=== PATIENT | female | born 1995 | race Caucasian/White ===

== ENCOUNTER 2019-10-20 00:17 | Inpatient (IN) | payer SELFPAY ==
[2019-10-20] VITALS (43 sets, daily range): BP systolic 104–139; BP diastolic 56–86
[~2019-10-20] VITALS: Ht 162 cm; Wt 66.7 kg
[2019-10-20] MEDS ORDERED: D5 LR IV SOLUTION 1,000 ML IV SCH (00:31)
[2019-10-20] MEDS ORDERED: MINERAL OIL CONCENTRATE 99.9% 15 ML UDC TOP PRN (00:45)
[2019-10-20 00:53] LABS: BASOPHILS % (AUTO) 0 % (0-10); EOSINOPHILS # (AUTO) 0.1 10^3/uL (0.0-0.3); EOSINOPHILS % (AUTO) 1 % (0-10); HEMATOCRIT 35 % (35-52); LYMPHOCYTES # (AUTO) 2.5 X 10^3 (1.0-4.0); LYMPHOCYTES % (AUTO) 21 % (12-44); MEAN CORPUSCULAR HEMOGLOBIN 29 PG (25-34); MEAN CORPUSCULAR HGB CONC 34 G/DL (32-36); MEAN CORPUSCULAR VOLUME 84 FL (80-99); MEAN PLATELET VOLUME 9.1 FL (7.4-10.4); MONOCYTES # (AUTO) 1.4 X 10^3 (0.0-1.0); MONOCYTES % (AUTO) 12 % (0-12); NEUTROPHILS # (AUTO) 7.6 X 10^3 (1.8-7.8); NEUTROPHILS % (AUTO) 65 % (42-75); PLATELET COUNT 340 10^3/uL (130-400); RED CELL DISTRIBUTION WIDTH 12.5 % (10.0-14.5); WHITE BLOOD COUNT 11.7 10^3/uL (4.3-11.0)
[2019-10-20] MEDS ORDERED: OXYTOCIN/NORMAL SALINE 500 ML IV ONE ×2 (00:53→07:47)
[2019-10-20] MEDS ORDERED: LACTATED RINGERS 1,000 ML IV SCH (01:00)
[2019-10-20] MEDS ORDERED: SUFENTA 0.6MCG/ML BUPIVA 0.125 100 ML ONE (01:29)
[2019-10-20] MEDS ORDERED: fentaNYL INJECTION 100 MCG/2 ML AMP ONE (01:39)
[2019-10-20] MEDS ORDERED: BUPIVACAINE 0.25% 30 ML (SENSORCAINE) VIAL ONE (01:39)
[2019-10-20] MEDS ORDERED: NALOXONE 0.4 MG/ML 1 ML (NARCAN) VIAL IV PRN (02:15)
[2019-10-20] MEDS ORDERED: EPIDURAL (SUFENTA 0.6MCG/ML BUPIVA 0.125%) 100 ML BAG EPI SCH (02:15)
[2019-10-20] MEDS ORDERED: LACTATED RINGERS 1,000 ML IV ONE (02:15)
[2019-10-20] MEDS ORDERED: CATHETER FLUSH 10 ML SYR IV PRN (02:15)
[2019-10-20] MEDS ORDERED: CATHETER FLUSH 10 ML SYR IV SCH ×2 (06:00→14:00)
[2019-10-20] MEDS: OXYTOCIN/NORMAL SALINE 500 ML IV SCH ×2 (07:23→07:55)
[2019-10-20] MEDS ORDERED: LIDOCAINE/EPI 2% 1:200,00 (XYLOCAINE) 10 ML VIAL ONE (07:43)
[2019-10-20] MEDS ORDERED: TETANUS,DIPTH,PERTUSS P/F (BOOSTRIX) 0.5 ML VIAL IM ONE (07:45)
[2019-10-20] MEDS ORDERED: BENZOCAINE/MENTHOL (DERMOPLAST) 60 ML CAN TP PRN (07:45)
[2019-10-20] MEDS ORDERED: WITCH HAZEL(TUCKS) 40 EA JAR TOP PRN (07:45)
[2019-10-20] MEDS ORDERED: MEASLES,MUMPS,RUBELLA 1 EA INJ SQ ONE (07:45)
--- NOTE | 2019-10-20 08:40 | Consultation ---
History of Present Illness History of Present Illness Patient Consulted On(niranjan/time) 10/20/19 08:30 Date Seen by Provider: Oct 20, 2019 Time Seen by Provider: 07:45 Reason for Visit: Active labor and delivery of term with 4th degree laceration History of Present Illness This 24 yo presented in active labor at term, and was managed and delivered by Dr. Mascorro. I was contacted this AM for advise and repair of 4th degree laceration involving the rectal mucosa. Allergies and Home Medications Allergies Coded Allergies: No Known Drug Allergies (Unverified , 10/20/19) Home Medications No Active Prescriptions or Reported Meds Patient Home Medication List Home Medication List Reviewed: Yes Past Hkrdepf-Vkawrz-Dpudey Hx Patient Social History Alcohol Use: Denies Use Recreational Drug Use: No Smoking Status: Never a Smoker Recent Foreign Travel: No Contact w/Someone Who Travel: No Recent Infectious Disease Expo: No Recent Hopitalizations: No Immunizations Up To Date PED Vaccines UTD: No Seasonal Allergies Seasonal Allergies: No Past Medical History Surgeries: No Respiratory: No Cardiac: No Neurological: No Expected Date of Delivery: Oct 17, 2019 Genitourinary: No Gastrointestinal: No Endocrine: No HEENT: No Cancer: No Psychosocial: No Integumentary: No Blood Disorders: No Adverse Reaction/Blood Tranf: No Family Medical History Patient reports no known family medical history. Review of Systems-General Constitutional: see HPI EENTM: see HPI Respiratory: see HPI Cardiovascular: see HPI Gastrointestinal: see HPI Genitourinary: see HPI Musculoskeletal: see HPI Skin: see HPI Psychiatric/Neurological: See HPI All Other Systems Reviewed Negative Unless Noted: Yes Physical Exam-General Problems Physical Exam Vital Signs Vital Signs - First Documented 10/20/19 10/20/19 10/20/19 00:45 00:50 06:42 Temp 36.2 Pulse 62 Resp 18 B/P (MAP) 139/86 (103) Pulse Ox 98 O2 Delivery Room Air O2 Flow Rate 10.00 Capillary Refill : Less Than 3 Seconds General Appearance: WD/WN, no apparent distress HEENT: PERRL/EOMI Comments When I presented for evaluation, patient pain under control with epidural. Evaluation of the vulvar initially is noted to have multiple contusions and edema consistent with first time vaginal delivery and trauma. There is a perineal laceration noted, extending from the vaginal mucosa at 6 oclock through the perineum, submucosa and anal sphincter, involving approx 5-8 mm of rectal mucosa. After delineating the planes of the laceration, I begin the repair by reapproximating the rectal mucosa using 3-0 chromic in a running fashion, I then re-enforce this repair by oversewing and imbricating the repair with 3-0 rapide vicryl suture. The anal sphincter is the identified and reapproximated using 2- 0 vicryl suture in interrupted fashion. The remainder of the repair is done in usual fashion, involved the vaginal mucosa and perineum reapproximation using 3- 0 rapid vicryl suture, after I pull together and reapproximate the perineal body by placing a crown stitch using 2-0 vicryl suture in the bulbocavernosis muscles. After which the repair was evaluated with excellent perineal support, and rectal exam was performed and sphincter tone could be appreciated. Assessment/Plan Assessment/Plan Admission Diagnosis/Plan Diagnosis: Post repair of 4th degree laceration P: Stool softeners scheduled for the next 2 weeks. Will follow and re-evaluate as needed. Clinical Quality Measures DVT/VTE Risk/Contraindication: Risk Factor Score Per Nursin RFS Level Per Nursing on Admit: 1=Low/No VTE PPX FRAN BUSTOS DO Oct 20, 2019 08:40
[2019-10-20] MEDS: IBUPROFEN 600 MG (MOTRIN) TAB PO SCH ×3 (09:33→20:27)
[2019-10-20] MEDS: MILK OF MAGNESIA 400 MG/5 ML 30 ML UDC PO PRN (10:50)
[2019-10-20] MEDS: DOCUSATE SODIUM 100 MG (COLACE) CAP PO SCH ×2 (10:50→20:27)
[2019-10-20] MEDS: ACETAMINOPHEN 500 MG TAB (TYLENOL) PO SCH ×2 (12:16→18:04)
--- NOTE | 2019-10-20 12:20 | History & Physical-OB ---
OB - Chief Complaint & HPI Date/Time Date of Admission: Date of Admission: Oct 20, 2019 at 00:34 Date seen by a Provider: Oct 20, 2019 Time Seen by a Provider: 06:00 Chief Complaint/History OB-Reason for Admission/Chief: Onset of Labor Hx : 1 Hx Para: 0 Expected Date of Delivery: Oct 17, 2019 Gestational Age in Weeks: 40 Gestational Age in Days: 3 Admission Nurse Assessment Rev: Yes Allergies and Home Medications Allergies Coded Allergies: No Known Drug Allergies (Unverified , 10/20/19) Home Medications No Active Prescriptions or Reported Meds Patient Home Medication List Home Medication List Reviewed: Yes OB - History Hx of Present Ultrasounds: Normal mid trimester US Obstetrical Complications: None Medical Complications: None Delivery History Adverse Rxn to Tranfusion: No Patient Past Medical History previously healthy Social History/Family History Recent Infectious Disease Expo: No Alcohol Use: Denies Use Recreational Drug Use: No Immunizations Hepatitis A: No Hepatitis B: No OB - Admission Exam Physical Exam Vitals: Vital Signs 10/20/19 10/20/19 10/20/19 06:00 06:15 07:15 Temp 37.0 Pulse 65 Resp 18 B/P (MAP) 114/56 (75) Pulse Ox 97 O2 Delivery OxyMask O2 Flow Rate 10.00 HEENT: NCAT Heart: Rhythm Normal Lungs: Clear Abdomen: Gravid Extremities: Normal Reflexes: Normal Cervical Dilatation: 10cm Effacement: 100% Station: 0 Membranes: Ruptured Amniotic Fluid: Clear Heart Rate: 120's Accelerations: Accelerations Present Decelerations: No Decelerations Short Term Variability: Present Mcc Variability: Average (6-25) Contractions on Admission: < 5 Minutes Apart Labs Laboratory Tests Test 10/20/19 00:40 Range/Units White Blood Count 11.7 H 4.3-11.0 10^3/uL Red Blood Count 4.16 L 4.35-5.85 10^6/uL Hemoglobin 12.0 11.5-16.0 G/DL Hematocrit 35 35-52 % Mean Corpuscular Volume 84 80-99 FL Mean Corpuscular Hemoglobin 29 25-34 PG Mean Corpuscular Hemoglobin Concent 34 32-36 G/DL Red Cell Distribution Width 12.5 10.0-14.5 % Platelet Count 340 130-400 10^3/uL Mean Platelet Volume 9.1 7.4-10.4 FL Neutrophils (%) (Auto) 65 42-75 % Lymphocytes (%) (Auto) 21 12-44 % Monocytes (%) (Auto) 12 0-12 % Eosinophils (%) (Auto) 1 0-10 % Basophils (%) (Auto) 0 0-10 % Neutrophils # (Auto) 7.6 1.8-7.8 X 10^3 Lymphocytes # (Auto) 2.5 1.0-4.0 X 10^3 Monocytes # (Auto) 1.4 H 0.0-1.0 X 10^3 Eosinophils # (Auto) 0.1 0.0-0.3 10^3/uL Basophils # (Auto) 0.0 0.0-0.1 10^3/uL OB - Assessment/Plan/Diagnosis Assessment Assessment: active labor Admission Dx Normal labor at 40 weeks and 3 days Admission Status: Inpatient Order (span 2 midnights) Reason for Inpatient Admission: Normal labor at 40 weeks 3 days. Plan Other Plan Will start pushing. OA. QUINTON FREIRE MD Oct 20, 2019 12:20
--- NOTE | 2019-10-20 12:27 | OB Labor & Delivery Record ---
Vag Delivery Note Vag Delivery Note Date of Delivery: 10/20/19 Preoperative Diagnosis: Lissett Rod is a (24 /Para 1 / 0, Gestational Age (wks)40with [3 days] Postoperative Diagnosis: Same Surgeon: QUINTON FREIRE Hardwood Floor Layer: [none] Anesthesia: [epidural] Delivery Type: [] Findings: [] Viable [male] infant, apgars [8/9], weight [7 pounds 1 ounce] Lacerations: Intact placenta with 3 vessel cord. No nuchal cord, body cord or shoulder dystocia Estimated Blood Loss: [300] ml Complications: None Condition: Stable Description of Procedure: The patient is a 24 year old female who presented [in labor]. She was admitted and informed consent was obtained. Her labor course was remarkable for [nothing] She progressed to complete dilatation and began to push. She was then set up for delivery. The infant's head was delivered in the [OA] position. The shoulders and remainder of the 's body were then delivered without difficulty. Upon delivery, the head was held below the level of the perineum and the mouth and nares were bulb suctioned. The cord was doubly clamped and cut and the was handed off to the pediatric staff after 60 seconds. An intact placenta with 3-vessel cord delivered via Marlon and there was found to be minimal bleeding.~ Vigorous fundal massage was performed and the fundus was found to be firm. IV oxytocin was given. Examination of the vagina and perineum revealed a [4th degree] laceration. Dr. Gilbert was called in for 4th degree repair. Following the repair, sponge, instrument and needle counts were correct. Mom and baby were both in stable condition in the labor suite. Vitals - Labs Vital Signs - I&O Vital Signs Date Time Temp Pulse Resp B/P (MAP) Pulse Ox O2 Delivery O2 Flow Rate FiO2 10/20/19 07:15 65 18 114/56 (75) OxyMask 10.00 10/20/19 07:00 64 18 113/67 (82) OxyMask 10.00 10/20/19 06:45 78 16 104/59 (74) OxyMask 10.00 10/20/19 06:42 OxyMask 10.00 10/20/19 06:30 57 16 116/60 (78) Room Air 10/20/19 06:15 37.0 75 16 126/70 (88) Room Air 10/20/19 06:00 61 16 110/69 (83) 97 Room Air 10/20/19 05:45 56 16 117/73 (88) 96 Room Air 10/20/19 05:30 56 16 119/77 (91) 98 Room Air 10/20/19 05:15 58 16 115/73 (87) 97 Room Air 10/20/19 05:00 62 16 110/69 (83) 98 Room Air 10/20/19 04:45 55 16 110/71 (84) 98 Room Air 10/20/19 04:30 77 16 124/61 (82) 97 Room Air 10/20/19 04:15 53 16 110/70 (83) 97 Room Air 10/20/19 04:00 56 16 119/76 (90) 98 Room Air 10/20/19 03:45 53 16 113/69 (84) 98 Room Air 10/20/19 03:30 56 16 119/75 (90) 98 Room Air 10/20/19 03:15 52 16 116/69 (85) 98 Room Air 10/20/19 03:00 53 16 119/76 (90) 98 Room Air 10/20/19 02:45 36.6 56 18 117/72 (87) 98 Room Air 10/20/19 02:30 55 18 120/72 (88) 98 Room Air 10/20/19 02:13 55 18 129/82 (98) 99 Room Air 10/20/19 02:08 64 18 115/74 (88) 97 Room Air 10/20/19 02:03 55 18 129/82 (98) 99 Room Air 10/20/19 01:58 55 18 133/83 (100) 98 Room Air 10/20/19 01:50 18 Room Air 10/20/19 01:35 58 18 126/61 (82) Room Air 10/20/19 01:20 18 Room Air 10/20/19 01:05 52 18 129/81 (97) 99 Room Air 10/20/19 01:03 98 Room Air 10/20/19 00:50 36.2 54 18 139/86 (103) 98 Room Air 10/20/19 00:45 36.2 62 18 98 Room Air Labs Laboratory Tests 10/20/19 00:40: White Blood Count 11.7H, Red Blood Count 4.16L, Hemoglobin 12.0, Hematocrit 35, Mean Corpuscular Volume 84, Mean Corpuscular Hemoglobin 29, Mean Corpuscular Hemoglobin Concent 34, Red Cell Distribution Width 12.5, Platelet Count 340, M mariela Platelet Volume 9.1, Neutrophils (%) (Auto) 65, Lymphocytes (%) (Auto) 21, Monocytes (%) (Auto) 12, Eosinophils (%) (Auto) 1, Basophils (%) (Auto) 0, Neutrophils # (Auto) 7.6, Lymphocytes # (Auto) 2.5, Monocytes # (Auto) 1.4H, Eosinophils # (Auto) 0.1, Basophils # (Auto) 0.0 QUINTON FREIRE MD Oct 20, 2019 12:27
[2019-10-20] MEDS ORDERED: AZITHROMYCIN INJECTION 500 MG in NS (IVPB) 250 ML IV ONE (17:30)
[2019-10-20] MEDS ORDERED: AZITHROMYCIN 250 MG TAB (ZITHROMAX) PO NR (17:30)
[2019-10-20] MEDS: BENZONATATE 100 MG (TESSALON) CAPSULE PO PRN (18:05)
[2019-10-21 00:23] VITALS: BP 90/49
[2019-10-21] MEDS: ACETAMINOPHEN 500 MG TAB (TYLENOL) PO SCH ×3 (00:26→13:18)
[2019-10-21 03:44] VITALS: BP 101/56
[2019-10-21] MEDS: IBUPROFEN 600 MG (MOTRIN) TAB PO SCH ×2 (03:45→11:22)
[2019-10-21 04:48] LABS: BASOPHILS % (AUTO) 0 % (0-10); EOSINOPHILS # (AUTO) 0.2 10^3/uL (0.0-0.3); EOSINOPHILS % (AUTO) 1 % (0-10); HEMATOCRIT 29 % (35-52); HEMOGLOBIN 9.7 G/DL (11.5-16.0); LYMPHOCYTES # (AUTO) 2.5 X 10^3 (1.0-4.0); LYMPHOCYTES % (AUTO) 17 % (12-44); MEAN CORPUSCULAR HEMOGLOBIN 29 PG (25-34); MEAN CORPUSCULAR HGB CONC 34 G/DL (32-36); MEAN CORPUSCULAR VOLUME 86 FL (80-99); MEAN PLATELET VOLUME 9.2 FL (7.4-10.4); MONOCYTES # (AUTO) 1.7 X 10^3 (0.0-1.0); MONOCYTES % (AUTO) 12 % (0-12); NEUTROPHILS % (AUTO) 70 % (42-75); PLATELET COUNT 282 10^3/uL (130-400); RED CELL DISTRIBUTION WIDTH 12.6 % (10.0-14.5); WHITE BLOOD COUNT 14.3 10^3/uL (4.3-11.0)
[2019-10-21 05:45] LABS: EOSINOPHILS % (MANUAL) 2 %; LYMPHOCYTES % (MANUAL) 15 %; MONOCYTES % (MANUAL) 7 %; NEUTROPHILS % (MANUAL) 76 %
[2019-10-21] MEDS: BENZONATATE 100 MG (TESSALON) CAPSULE PO PRN (06:01)
--- NOTE | 2019-10-21 07:16 | Anesthesia-Regional Post-Op ---
Regional Patient Condition Mental Status: Alert, Oriented x3 Circulation: Same as Pre-Op Headache: Absent Sensation: Full Recovery Motor Block: Absent Post Op Complications Complications None Follow Up Care/Instructions Patient Instructions None needed. Anesthesia/Patient Condition Patient is doing well, no complaints, stable vital signs, no apparent adverse anesthesia problems. No complications reported per nursing. D/C home per [facility] Criteria: Yes ANA PAULA DEL VALLE CRNA Oct 21, 2019 07:16
--- NOTE | 2019-10-21 07:29 | Discharge Summary ---
Diagnosis/Chief Complaint Date of Admission Oct 20, 2019 at 00:34 Date of Discharge Admission Diagnosis Admission Diagnosis Term labor at 40 3/7 wga. Discharge Diagnosis Term vaginal delivery, delivered with fourth degree laceration. Problems/Diagnosis: (1) Fourth degree perineal laceration during delivery, delivered Assessment & Plan: Healing well. Pain controlled. Talked about return precautions. Going home on colace. (2) care following vaginal delivery Assessment & Plan: Doing well. Discharge Summary-OBS Procedures None. Discharge Physical Examination Allergies: Coded Allergies: No Known Drug Allergies (Unverified , 10/20/19) Vitals & I&Os Vital Sign - Last 12Hours Date Time Temp Pulse Resp B/P (MAP) Pulse Ox O2 Delivery O2 Flow Rate FiO2 10/21/19 03:44 36.4 58 16 101/56 (71) 96 Room Air 10/20/19 07:15 10.00 General Appearance: Alert, Oriented X3 HEENT: Atraumatic Respiratory: Clear to Auscultation Cardiovascular: Regular Rate Abdominal: Other (fundus firm at umbilicus) Extremities: No Edema Skin: No Rashes Neuro: Normal Speech Psych/Mental Status: Mental Status NL Hospital Course Was the Problem List Reviewed?: Yes Labs Laboratory Tests 10/21/19 04:24: White Blood Count 14.3H, Red Blood Count 3.35L, Hemoglobin 9.7L, Hematocrit 29L, Mean Corpuscular Volume 86, Mean Corpuscular Hemoglobin 29, Mean Corpuscular Hemoglobin Concent 34, Red Cell Distribution Width 12.6, Platelet Count 282, Mean Platelet Volume 9.2, Neutrophils (%) (Auto) 70, Lymphocytes (%) (Auto) 17, Monocytes (%) (Auto) 12, Eosinophils (%) (Auto) 1, Basophils (%) (Auto) 0, Neutrophils # (Auto) 10.0H, Lymphocytes # (Auto) 2.5, Monocytes # (Auto) 1.7H, Eosinophils # (Auto) 0.2, Basophils # (Auto) 0.0, Neutrophils % (Manual) 76, Lymphocytes % (Manual) 15, Monocytes % (Manual) 7, Eosinophils % (Manual) 2 Discharge Instructions to patient/family Please see electronic discharge instructions given to patient. Discharge Medications Reviewed and agree with Discharge Medication list on patient's Discharge Instruction sheet Clinical Quality Measures DVT/VTE Risk/Contraindication: Risk Factor Score Per Nursin RFS Level Per Nursing on Admit: 1=Low/No VTE PPX QUINTON FREIRE MD Oct 21, 2019 07:29
--- NOTE | 2019-10-21 07:30 | Discharge Instructions ---
Discharge Inst-Women's Serv Reconcile Patient Problems Problems Reviewed?: Yes Depart Medications New, Converted or Re-Newed RX: Transmitted to Pharmacy Final Diagnosis Term vaginal delivery. Follow Up/Instructions Goal/Follow Up: Follow-up with Dr. Freire in 6 weeks. Activity Activity: Activity as Tolerated Driving Instructions: You May Drive NO SMOKING: NO SMOKING Nothing Inside Vagina: No Douching, No [place], No Tampons Diet Discharge Diet: No Restrictions Symptoms to Report to : Fever Over 101 Degrees F, Vaginal Bleeding Increase, Vaginal Discharge Foul For Any Problems or Questions: Contact Your Physician QUINTON FREIRE MD Oct 21, 2019 07:30
[2019-10-21] MEDS ORDERED: DOCU-244 PO (07:35)
[2019-10-21] MEDS ORDERED: IBUP-844 PO (07:35)
[2019-10-21] MEDS ORDERED: AZIT250T PO (07:36)
[2019-10-21] MEDS ORDERED: AZITHROMYCIN 250 MG TAB (ZITHROMAX) PO SCH (09:00)
[2019-10-21] MEDS ORDERED: AZITHROMYCIN INJECTION 250 MG in NS (IVPB) 250 ML IV SCH (09:00)
[2019-10-21 11:20] VITALS: BP 109/67
[2019-10-21] MEDS: MILK OF MAGNESIA 400 MG/5 ML 30 ML UDC PO PRN (11:21)
[2019-10-21] MEDS: DOCUSATE SODIUM 100 MG (COLACE) CAP PO SCH (11:22)
[2019-10-21 16:00] VITALS: BP 105/61
== END 2019-10-21 17:10 | disposition home or self-care (01) | DRG 768 ==
LOC: LDRP 00:17 → WSo 00:17 → LDRP 00:34
PROVIDERS: ADMIT Family Medicine; ATTEND Family Medicine
PROC: 10E0XZZ Delivery of Products of Conception, External Approach (ICD-10-PCS; principal; 2019-10-20)
PROC: 0DQP0ZZ Repair Rectum, Open Approach (ICD-10-PCS; 2019-10-20)
DX: O70.3 Fourth degree perineal laceration during delivery (principal); Z37.0 Single live birth; Z3A.40 40 weeks gestation of pregnancy; Z28.21 Immunization not carried out because of patient refusal
CPT/HCPCS: 36415; 85007; 85025; 85027; 86850; 86900; 86901; 99212

== ENCOUNTER 2021-05-12 21:31 | Observation (INO) | payer SELFPAY ==
[~2021-05-12] VITALS: Ht 165.1 cm; Wt 70.5 kg
[~2021-05-12 21:31] MED LIST: AZIT250T PO; DCS100C PO; IBUP-844 PO
[2021-05-12 21:57] LABS: BILIRUBIN,URINE NEGATIVE (NEGATIVE); CLARITY,URINE CLOUDY; COLOR,URINE YELLOW; GLUCOSE, URINE (UA) NEGATIVE (NEGATIVE); KETONES,URINE NEGATIVE (NEGATIVE); LEUKOCYTE ESTERASE ,URINE NEGATIVE (NEGATIVE); NITRITE,URINE NEGATIVE (NEGATIVE); PH,URINE 6.5 (5-9); PROTEIN,URINE NEGATIVE (NEGATIVE)
[2021-05-12 22:04] VITALS: BP 119/69
[2021-05-12 22:05] LABS: AMORPHOUS SEDIMENT,UR FEW AMOR URATES /LPF; BACTERIA,URINE TRACE /HPF
[2021-05-12 22:10] VITALS: BP 119/69
[2021-05-12] MEDS ORDERED: MINERAL OIL CONCENTRATE 99.9% 15 ML UDC TOP PRN (23:30)
[2021-05-12] MEDS ORDERED: D5 LR IV SOLUTION 1,000 ML IV SCH (23:30)
[2021-05-13 00:05] VITALS: BP 103/63
[2021-05-13 00:12] LABS: BASOPHILS % (AUTO) 0 % (0-10); EOSINOPHILS # (AUTO) 0.1 10^3/uL (0.0-0.3); EOSINOPHILS % (AUTO) 1 % (0-10); HEMATOCRIT 38 % (35-52); HEMOGLOBIN 12.8 g/dL (11.5-16.0); LYMPHOCYTES # (AUTO) 2.5 10^3/uL (1.0-4.0); LYMPHOCYTES % (AUTO) 28 % (12-44); MEAN CORPUSCULAR HEMOGLOBIN 30 pg (25-34); MEAN CORPUSCULAR HGB CONC 34 g/dL (32-36); MEAN CORPUSCULAR VOLUME 88 fL (80-99); MEAN PLATELET VOLUME 9.7 fL (9.0-12.2); MONOCYTES # (AUTO) 0.8 10^3/uL (0.0-1.0); MONOCYTES % (AUTO) 9 % (0-12); NEUTROPHILS # (AUTO) 5.7 10^3/uL (1.8-7.8); NEUTROPHILS % (AUTO) 62 % (42-75); PLATELET COUNT 234 10^3/uL (130-400); WHITE BLOOD COUNT 9.2 10^3/uL (4.3-11.0)
[2021-05-13 01:05] VITALS: BP 111/55
[2021-05-13 02:05] VITALS: BP 91/50
[2021-05-13 03:05] VITALS: BP 97/58
[2021-05-13 04:05] VITALS: BP 90/52
[2021-05-13 05:17] VITALS: BP 100/60
[2021-05-13] MEDS ORDERED: CATHETER FLUSH 10 ML SYR IV SCH (06:00)
--- NOTE | 2021-05-13 08:17 | Physician Query-Final Dx ---
CARLITO FUENTES 05/13/21 0817: Clinic Account Progress/Dx Physician Query: Please give diagnosis Please include # weeks gestation Date of Service May 12, 2021 at 21:31 KIMANI GRAHAM DO 05/13/21 0912: Clinic Account Progress/Dx DIAGNOSIS: Diagnosis 38 week gestation contractions CARLITO FUENTES May 13, 2021 08:17 KIMANI GRAHAM DO May 13, 2021 09:12
[2021-05-20] MEDS ORDERED: ACHD5005 PO (07:40)
[2021-05-20] MEDS ORDERED: DCS100C PO (07:40)
[2021-05-20] MEDS ORDERED: IBUP-844 PO (07:40)
[2021-05-20] MEDS ORDERED: SMT80CT PO (07:40)
== END 2021-05-13 06:29 | disposition home or self-care (01) ==
LOC: WSo 21:31 → LDRP 21:32 → WSo 21:32 → LDRP 21:39 → WSo 23:06 → LDRP 23:06 → UNDOADMIN 23:06 → LDRP 23:06 → WSo 05-13 00:06 → UNDODISIN 05-13 07:10 → LDRP 05-13 07:10 → EDSTATUS 05-14 18:09
PROVIDERS: ADMIT Obstetrics & Gynecology; ATTEND Obstetrics & Gynecology
DX: O62.9 Abnormality of forces of labor, unspecified (principal); Z3A.38 38 weeks gestation of pregnancy
CPT/HCPCS: 81000; 85025; 86850; 86900; 86901; 96360; 96361; G0378; G0379; 36415; 99211

== ENCOUNTER 2021-05-19 08:08 | Inpatient (IN) | payer SELFPAY ==
[~2021-05-19] VITALS: Ht 162.6 cm; Wt 69.6 kg
[2021-05-19] VITALS (42 sets, daily range): BP systolic 97–134; BP diastolic 56–86
--- NOTE | 2021-05-19 09:27 | History & Physical-OB ---
OB - Chief Complaint & HPI Date/Time Date of Admission: Date of Admission: 05/22/2021 Date seen by a Provider: May 19, 2021 Time Seen by a Provider: 09:25 Chief Complaint/History OB-Reason for Admission/Chief: Onset of Labor Hx : 2 Hx Para: 1 Expected Date of Delivery: May 22, 2021 Gestational Age in Weeks: 39 Gestational Age in Days: 4 Other reason for admission: This patient of Dr. Mascorro in mobile, had established with Dr. Parker for delivery here in [place]. She has a history of 4th degree laceration I had managed and repaired in 2019. Limited access noted to lab results. Admission Nurse Assessment Rev: Yes History of Labs GBS neg It looks as though there were PN8 labs ordered but I cannot see that they were done, or that there are results Allergies and Home Medications Allergies Coded Allergies: No Known Drug Allergies (Unverified , 10/20/19) Home Medications No Active Prescriptions or Reported Meds Patient Home Medication List Home Medication List Reviewed: Yes OB - History Hx of Present Care: Yes Ultrasounds: Normal mid trimester US Obstetrical Complications: None Medical Complications: None Delivery History Adverse Rxn to Tranfusion: No Patient Past Medical History previously healthy Social History/Family History 2nd Hand Smoke Exposure: No Immunizations Hepatitis A: No Hepatitis B: No OB - Admission Exam Physical Exam HEENT: NCAT Heart: Rhythm Normal Lungs: Clear Abdomen: Gravid Extremities: Normal Reflexes: Normal Cervical Dilatation: 4cm Effacement: 75% Station: -2 Membranes: Intact Heart Rate: 130's Accelerations: Accelerations Present Decelerations: No Decelerations Short Term Variability: Present Substitute Nurse Variability: Average (6-25) Contractions on Admission: 6-10 Minutes Apart Intensity: Moderate OB - Assessment/Plan/Diagnosis Assessment Assessment: active labor Admission Dx 26 yo @ 39.4 weeks Active labor GBS neg Admission Status: Inpatient Order (span 2 midnights) Reason for Inpatient Admission: Active labor at 39 weeks Plan Plan: Expectant Management FRAN BUSTOS DO May 19, 2021 09:27
[2021-05-19] MEDS ORDERED: OXYTOCIN PRE-MIX DRIP 500 ML IV ONE (09:31)
[2021-05-19] MEDS ORDERED: D5 LR IV SOLUTION 1,000 ML IV ONE (09:31)
[2021-05-19] MEDS ORDERED: LIDOCAINE 1% INJ 20 ML 20 ML VIAL ONE (09:31)
[2021-05-19 09:41] LABS: BASOPHILS % (AUTO) 0 % (0-10); EOSINOPHILS % (AUTO) 1 % (0-10); HEMATOCRIT 37 % (35-52); HEMOGLOBIN 12.8 g/dL (11.5-16.0); LYMPHOCYTES % (AUTO) 25 % (12-44); MEAN CORPUSCULAR HEMOGLOBIN 30 pg (25-34); MEAN CORPUSCULAR HGB CONC 34 g/dL (32-36); MEAN CORPUSCULAR VOLUME 87 fL (80-99); MEAN PLATELET VOLUME 9.8 fL (9.0-12.2); MONOCYTES # (AUTO) 0.7 10^3/uL (0.0-1.0); MONOCYTES % (AUTO) 9 % (0-12); NEUTROPHILS # (AUTO) 5.2 10^3/uL (1.8-7.8); NEUTROPHILS % (AUTO) 65 % (42-75); PLATELET COUNT 233 10^3/uL (130-400)
[2021-05-19] MEDS ORDERED: D5 LR IV SOLUTION 1,000 ML IV SCH (09:45)
[2021-05-19] MEDS: LACTATED RINGERS 1,000 ML IV SCH ×2 (10:40→15:46)
[2021-05-19] MEDS ORDERED: fentaNYL 2 mcg/ml BUPIVA 0.125 100 ML ONE (10:50)
[2021-05-19] MEDS ORDERED: BUPIVACAINE 0.25% 30 ML (SENSORCAINE) VIAL ONE ×2 (11:27→15:05)
[2021-05-19] MEDS ORDERED: fentaNYL INJ 100 MCG/2 ML AMP ONE ×2 (11:27→15:46)
[2021-05-19] MEDS ORDERED: NALOXONE 0.4 MG/ML 1 ML (NARCAN) VIAL IV PRN ×2 (12:00→15:00)
[2021-05-19] MEDS ORDERED: diphenhydrAMINE 50 MG/ML INJ (BENADRYL) IV PRN (12:00)
[2021-05-19] MEDS ORDERED: EPIDURAL (fentaNYL 2 MCG/ML BUPIVA 0.125%)100 ML BAG EPI PRN (12:00)
[2021-05-19] MEDS ORDERED: ONDANSETRON 4 MG/2 ML (SDV) Z0FRAN IV PRN (12:00)
[2021-05-19] MEDS ORDERED: CATHETER FLUSH 10 ML SYR IV SCH (14:00)
[2021-05-19] MEDS ORDERED: ceFAZolin 2 GM IV Premixed 50 ML ONE (14:58)
[2021-05-19] MEDS ORDERED: CITRIC ACID/SOB CIT (BICITRA) 30 ML UDC ONE (14:58)
[2021-05-19] MEDS ORDERED: FAMOTIDINE 20MG/2ML IV (PEPCID) ONE (14:58)
[2021-05-19] MEDS ORDERED: METOCLOPRAMIDE INJ 10 MG/2 ML (REGLAN) ONE (14:58)
--- NOTE | 2021-05-19 14:58 | Progress Note-Pre Operative ---
Pre-Operative Progress Note H&P Reviewed The H&P was reviewed, patient examined and no changes noted. Date Seen by Provider: May 19, 2021 Time Seen by Provider: 14:30 Date H&P Reviewed: May 19, 2021 Time H&P Reviewed: 14:30 Pre-Operative Diagnosis: CPD, intolerance 2nd stage labor FRAN BUSTOS DO May 19, 2021 14:58
[2021-05-19] MEDS ORDERED: ONDANSETRON 4 MG/2 ML (SDV) Z0FRAN IVP PRN ×2 (15:00→16:30)
[2021-05-19] MEDS ORDERED: HYDROcodone/APAP 5 MG/325 MG (LORTAB) TAB PO PRN (15:00)
[2021-05-19] MEDS ORDERED: MEASLES,MUMPS,RUBELLA 1 EA INJ SC SCH (15:00)
[2021-05-19] MEDS ORDERED: TETANUS,DIPTH,PERTUSS P/F (BOOSTRIX) 0.5 ML VIAL IM SCH (15:00)
[2021-05-19] MEDS ORDERED: OXYTOCIN PRE-MIX DRIP 500 ML IV SCH (15:00)
[2021-05-19] MEDS ORDERED: ceFAZolin 2 GM IV Premixed 50 ML IV NR (15:00)
--- NOTE | 2021-05-19 15:01 | Discharge Inst-Women's Service ---
Discharge Inst-Women's Serv Depart Medication/Instructions New, Converted or Re-Newed RX: RX on Chart Final Diagnosis POD 2 PLTCS Problems Reviewed?: Yes Consults/Follow Up Additional Follow Up: Yes Orders/Referrals Dr. Gilbert or Liz in 7-10 days, Dr. Mascorro in 6 weeks Activity Activity: Activity as Tolerated Driving Instructions: No Driving for 1 Week NO SMOKING: NO SMOKING Nothing Inside Vagina: No Douching, No [place], No Tampons Diet Discharge Diet: No Restrictions Symptoms to Report to : Bleeding Excessive, Pain Increased, Fever Over 101 Degrees F, Vaginal Bleeding Increase, Questions/Concerns For Any Problems or Questions: Contact Your Physician Skin/Wound Care Infection Signs and Symptoms: Increased Redness, Foul Odor of Wound, Increased Drainage, Skin Itchy or Has a Rash, Increased Swelling, Temperature Above 101 F Operative Area Clean and Dry: Keep Incision Clean/Dry Stitches/[place]/Dermabond: Dermabond, Care of Stitches Bathing Instructions: FRAN Ralph DO May 19, 2021 15:01
[2021-05-19] MEDS ORDERED: LIDOCAINE PF 2% 5 ML (XYLOCAINE) VIAL ONE (15:05)
[2021-05-19] MEDS ORDERED: KETOROLAC 30 MG/ML VIAL ONE (15:07)
[2021-05-19] MEDS ORDERED: ONDANSETRON 4 MG/2 ML (SDV) Z0FRAN ONE (15:07)
[2021-05-19] MEDS ORDERED: OXYTOCIN PRE-MIX DRIP 1,000 ML IV ONE (15:26)
[2021-05-19] MEDS: KETOROLAC 30 MG/ML VIAL IV SCH ×2 (16:00→21:45)
[2021-05-19] MEDS ORDERED: MEPERIDINE (DEMEROL) INJ 50 MG/ML IVP ONE (16:30)
[2021-05-19] MEDS ORDERED: morphine INJ 10 MG/ML 1ML (SYR OR VIAL) IVP ONE (16:30)
--- NOTE | 2021-05-19 17:52 | OPERATIVE REPORT ---
DATE OF SERVICE: PREOPERATIVE DIAGNOSES: 1. A 26-year-old G2, P1 at 39 weeks and 4 days gestation. 2. Cephalopelvic disproportion. 3. intolerance of labor. POSTOPERATIVE DIAGNOSES: 1. A 26-year-old G2, P1 at 39 weeks and 4 days gestation. 2. Cephalopelvic disproportion. 3. intolerance of labor. 4. Persistent occiput posterior. PROCEDURE: Primary low transverse section. SURGEON: Dylan Gilbert DO ANESTHESIA: Epidural, which was bolused. ESTIMATED BLOOD LOSS: 200 mL. URINE OUTPUT: 50 mL clear at the end of procedure. FLUIDS: 1600 mL lactated Ringer's solution. FINDINGS: A live male weighing 7 pounds 10 ounces, Apgars of 4 and 9. Grossly normal appearing uterus, bilateral fallopian tubes and ovaries. SPECIMEN SENT: Placenta. INDICATIONS FOR PROCEDURE: This 26-year-old female is a patient, who presented in spontaneous labor, 4 cm dilated. Artificial rupture of membranes were performed at presentation. She progressed without further augmentation to complete 0 station. She did have an epidural for pain control. She began to have a little bit of swelling of the vulva and she was encouraged to push after approximately 30 minutes on a peanut ball, allowing the baby to come down; however, there was little to no progression in station. After approximately 45 minutes of pushing, there was some progression of the caput to approximately +1 station; however, the skull remained at 0 station. There was also some prolonged heart rate deceleration down to 60s and 70s, which returned up to baseline and normal heart rate with oxygen supplementation maternally; however, using several attempts to rotate this occiput posterior presentation, I was unsuccessful in doing so and the swelling significantly got worse. Due to a suspicion for cephalopelvic disproportion and occiput posterior, I discussed with the patient proceeding with primary risk versus risk of waiting for further destruction and injury to the vulva were discussed with the patient in detail. After all of her questions were answered, consent was obtained, the patient was taken to the operating room. OPERATIVE REPORT IN DETAIL: Once in the operating room, epidural analgesia was bolused and found to be adequate. She was placed in the supine position with leftward tilt, prepped and draped in normal sterile fashion. Timeout was performed and anesthesia was tested. I then make a Pfannenstiel skin incision with a knife and carried down to underlying fascia using Bovie cautery. The fascial incision extended laterally using Bovie cautery. Superior aspect of fascial incision was then grasped with Chelsey clamps, tented up and dissected off the underlying rectus muscles. The inferior aspect of fascial incision was then grasped with Chelsey clamps, tented up and dissected off the underlying rectus muscles. Rectus muscles were then dissected down the midline, which exposed the peritoneum, which I entered bluntly and extended using blunt traction. Elieser ring retractor was placed in the peritoneal incision, which offers excellent lateral sidewall retraction. I identified the lower uterine segment, which was found to be thinned out. I make a low transverse incision to the vesicouterine peritoneum and create a bladder flap by doing this. I then proceeded with my myotomy until membranes were visualized, at which point, I extended the uterine incision laterally and superiorly using bandage scissors. Amniotomy was performed in the process of doing this, clear fluid was noted. The infant was found in the persistent occiput posterior presentation. The 's head was elevated up to the incision where the nares and oropharynx were bulb suctioned. Anterior and posterior shoulders were delivered. Infant was then brought to the operative field, where the cord was doubly clamped and cut and was handed off to waiting nurses in attendance. Cord blood was collected. Three-vessel cord with intact placenta was delivered spontaneously thereafter. IV Pitocin was initiated to facilitate uterine contraction. Uterine fundus confirmed by manual massage. The uterus was then exteriorized and cleared of all endometrial clots and debris. I then proceeded with closing the uterine incision using 0 Vicryl suture in running locked fashion. Second layer of imbricating 0 Monocryl was placed. Excellent hemostasis was noted after doing this. I then placed the uterus back in the pelvis, copiously irrigated the pelvis using normal saline. Once again, there was no active bleeding noted from any of my dissection planes. I placed Interceed antiadhesive over my low transverse incision. I removed the Elieser ring retractor. I then proceeded with closing the peritoneum using 3-0 Vicryl suture in a running fashion. The rectus muscles were reapproximated using 3-0 Vicryl suture in interrupted fashion. The fascia was reapproximated using 0 Vicryl suture in a running fashion. The subcutaneous tissue was reapproximated using 3-0 plain interrupted subcutaneous stitch and skin was reapproximated using 4-0 Monocryl in a running subcuticular. Dermabond was applied to incision and sterile dressing with adhesive white tape. The patient tolerated the procedure well and was taken to recovery area in stable condition. Lap and sponge counts were correct at the end of the procedure. Instrument count was correct as well. Two grams of Ancef were given preoperatively for infection prophylaxis. Job ID: [id number] DocumentID: [id number] Dictated Date: 05/19/2021 16:17:24 Software Development Intern Date: 05/19/2021 17:51:28 Dictated By: DO WAGNER CASTREJON
[2021-05-19] MEDS: DOCUSATE SODIUM 100 MG (COLACE) CAP PO SCH (21:45)
[2021-05-19] MEDS: CATHETER FLUSH 10 ML SYR IV SCH (21:46)
[2021-05-20 00:15] VITALS: BP 114/64
[2021-05-20] MEDS ORDERED: SIMETHICONE 80 MG (MYLICON) CHEW PO PRN (03:15)
[2021-05-20 03:23] VITALS: BP 123/76
[2021-05-20] MEDS: KETOROLAC 30 MG/ML VIAL IV SCH ×3 (03:23→15:36)
[2021-05-20] MEDS: CATHETER FLUSH 10 ML SYR IV SCH ×3 (03:23→20:38)
[2021-05-20 06:30] LABS: BASOPHILS % (AUTO) 0 % (0-10); EOSINOPHILS % (AUTO) 0 % (0-10); HEMATOCRIT 30 % (35-52); LYMPHOCYTES # (AUTO) 1.7 10^3/uL (1.0-4.0); LYMPHOCYTES % (AUTO) 15 % (12-44); MEAN CORPUSCULAR HEMOGLOBIN 30 pg (25-34); MEAN CORPUSCULAR HGB CONC 33 g/dL (32-36); MEAN CORPUSCULAR VOLUME 90 fL (80-99); MEAN PLATELET VOLUME 9.8 fL (9.0-12.2); MONOCYTES # (AUTO) 0.9 10^3/uL (0.0-1.0); MONOCYTES % (AUTO) 7 % (0-12); NEUTROPHILS # (AUTO) 8.9 10^3/uL (1.8-7.8); NEUTROPHILS % (AUTO) 77 % (42-75); PLATELET COUNT 167 10^3/uL (130-400); WHITE BLOOD COUNT 11.6 10^3/uL (4.3-11.0)
--- NOTE | 2021-05-20 07:37 | Postpartum Progress Note ---
Note Note Day # 1 Subjective: Patient is without complaints. Ambulating, voiding. Tolerating a regular diet without nausea or vomiting. Normal lochia. Pain is well controlled with oral pain medications. Objective: Physical Exam: General - Alert and oriented, no apparent distress Abdomen - Soft, appropriately tender to palpation, non-distended, fundus firm at umbilicus Extremities - no edema, negative Betito's bilaterally Incision- c/d/e Vulva significantly swollen and edematous Assessment: POD 1 PLTCS Acute blood loss anemia Swollen vulva concerns of urinary retention secondary to this Plan: Routine care. Encourage breast feeding. Encourage ambulation. Ferrous sulfate supplementation. Plan for discharge tomorrow Vitals - Labs Vital Signs - I&O Vital Signs Date Time Temp Pulse Resp B/P (MAP) Pulse Ox O2 Delivery O2 Flow Rate FiO2 05/20/21 03:23 37.2 62 18 123/76 (92) 98 Room Air 05/20/21 00:15 36.4 63 18 114/64 (81) 97 Room Air 05/19/21 21:45 37.0 63 18 120/79 (93) 98 Room Air 05/19/21 18:36 37.0 67 18 133/77 (95) 99 Room Air 05/19/21 17:00 Room Air 05/19/21 17:00 36.6 20 118/62 (80) 98 Room Air 05/19/21 16:50 20 120/62 (81) 98 Room Air 05/19/21 16:45 Room Air 05/19/21 16:40 20 117/73 (88) 99 Room Air 05/19/21 16:30 Room Air 05/19/21 16:30 20 117/62 (80) 99 Room Air 05/19/21 16:20 20 112/77 (89) 99 Room Air 05/19/21 16:14 36.8 20 119/86 (97) 100 Room Air 05/19/21 16:14 Room Air 05/19/21 15:16 57 18 116/72 (87) Non Rebreather 15.00 05/19/21 15:09 36.6 05/19/21 15:00 70 18 115/58 (77) Non Rebreather 15.00 05/19/21 14:45 75 18 104/56 (72) Non Rebreather 15.00 05/19/21 14:31 66 18 134/83 (100) Non Rebreather 15.00 05/19/21 14:00 62 18 110/70 (83) 98 Room Air 05/19/21 13:46 64 18 117/71 (86) 100 Room Air 05/19/21 13:41 36.6 05/19/21 13:30 57 18 118/79 (92) 96 Room Air 05/19/21 13:15 65 18 130/86 (101) 99 Room Air 05/19/21 13:00 60 18 107/71 (83) Room Air 05/19/21 12:57 36.4 05/19/21 12:55 61 18 103/66 (78) 99 Room Air 05/19/21 12:50 60 18 104/61 (75) 96 Room Air 05/19/21 12:44 56 18 113/70 (84) 99 Room Air 05/19/21 12:40 55 18 113/70 (84) 99 Room Air 05/19/21 12:35 65 18 101/67 (78) 98 Room Air 05/19/21 12:30 53 18 113/69 (84) 100 Room Air 05/19/21 12:24 54 18 109/65 (80) 100 Room Air 05/19/21 12:19 55 18 106/64 (78) 99 Room Air 05/19/21 12:16 52 18 107/64 (78) 99 Room Air 05/19/21 12:10 59 18 115/58 (77) 99 Room Air 05/19/21 12:03 59 18 114/67 (83) 96 Room Air 05/19/21 12:00 51 18 97/68 (78) Room Air 05/19/21 11:57 36.2 60 18 111/64 (80) Room Air 05/19/21 11:54 53 18 105/63 (77) Room Air 05/19/21 11:51 53 18 105/64 (78) Room Air 05/19/21 11:47 54 18 111/64 (80) Room Air 05/19/21 11:44 61 18 125/79 (94) Room Air 05/19/21 11:42 55 18 123/77 (92) 98 Room Air 05/19/21 11:39 55 18 124/82 (96) Room Air 05/19/21 11:36 56 18 128/82 (97) 98 Room Air 05/19/21 11:17 70 18 122/78 (93) Room Air 05/19/21 10:52 35.9 05/19/21 10:46 59 18 127/78 (94) Room Air 05/19/21 10:40 36.3 05/19/21 09:46 57 18 125/83 (97) Room Air 05/19/21 09:16 55 18 120/81 (94) 98 Room Air 05/19/21 08:30 36.8 62 18 120/68 (85) 98 Room Air I & O 05/20/21 07:00 Intake Total 1550 ml Output Total 100 ml Balance 1450 ml Labs Laboratory Tests 05/19/21 08:50: White Blood Count 8.0, Red Blood Count 4.30, Hemoglobin 12.8, Hematocrit 37, Mean Corpuscular Volume 87, Mean Corpuscular Hemoglobin 30, Mean Corpuscular Hemoglobin Concent 34, Red Cell Distribution Width 12.5, Platelet Count 233, Mean Platelet Volume 9.8, Immature Granulocyte % (Auto) 1, Neutrophils (%) (Auto) 65, Lymphocytes (%) (Auto) 25, Monocytes (%) (Auto) 9, Eosinophils (%) (Auto) 1, Basophils (%) (Auto) 0, Neutrophils # (Auto) 5.2, Lymphocytes # (Auto) 2.0, Monocytes # (Auto) 0.7, Eosinophils # (Auto) 0.0, Basophils # (Auto) 0.0, Immature Granulocyte # (Auto) 0.1 05/20/21 06:14: White Blood Count 11.6H, Red Blood Count 3.34L, Hemoglobin 10.0#L, Hematocrit 30L, Mean Corpuscular Volume 90, Mean Corpuscular Hemoglobin 30, Mean Corpuscular Hemoglobin Concent 33, Red Cell Distribution Width 12.5, Platelet Count 167, Mean Platelet Volume 9.8, Immature Granulocyte % (Auto) 1, Neutrophils (%) (Auto) 77H, Lymphocytes (%) (Auto) 15, Monocytes (%) (Auto) 7, Eosinophils (%) (Auto) 0, Basophils (%) (Auto) 0, Neutrophils # (Auto) 8.9H, Lymphocytes # (Auto) 1.7, Monocytes # (Auto) 0.9, Eosinophils # (Auto) 0.0, Basophils # (Auto) 0.0, Immature Granulocyte # (Auto) 0.1 FRAN BUSTOS DO May 20, 2021 07:37
[2021-05-20] MEDS ORDERED: SMT80CT PO (07:40)
[2021-05-20] MEDS ORDERED: ACHD5005 PO (07:40)
[2021-05-20] MEDS ORDERED: IBUP-844 PO (07:40)
[2021-05-20] MEDS ORDERED: DCS100C PO (07:40)
[2021-05-20 09:07] VITALS: BP 126/79
[2021-05-20] MEDS: DOCUSATE SODIUM 100 MG (COLACE) CAP PO SCH ×2 (09:09→20:37)
[2021-05-20] MEDS ORDERED: diphenhydrAMINE 50 MG/ML INJ (BENADRYL) IVP ONE (12:15)
--- NOTE | 2021-05-20 14:35 | Anesthesia-Regional Post-Op ---
Regional Patient Condition Mental Status: Alert, Oriented x3 Circulation: Same as Pre-Op Headache: Absent Sensation: Full Recovery Motor Block: Absent Post Op Complications Complications None Follow Up Care/Instructions Patient Instructions None needed. Anesthesia/Patient Condition Patient is doing well, no complaints, stable vital signs, no apparent adverse anesthesia problems. CALVIN JAMES DO May 20, 2021 14:35
[2021-05-20 15:36] VITALS: BP 115/73
[2021-05-20 20:38] VITALS: BP 122/79
[2021-05-20] MEDS: IBUPROFEN 600 MG (MOTRIN) TAB PO SCH (20:38)
[2021-05-20] MEDS: diphenhydrAMINE 50 MG/ML INJ (BENADRYL) IVP PRN (20:38)
[2021-05-21 03:31] VITALS: BP 110/71
[2021-05-21] MEDS: CATHETER FLUSH 10 ML SYR IV SCH (03:31)
[2021-05-21] MEDS: IBUPROFEN 600 MG (MOTRIN) TAB PO SCH ×3 (03:31→15:10)
[2021-05-21] MEDS: diphenhydrAMINE 50 MG/ML INJ (BENADRYL) IVP PRN (03:31)
[2021-05-21 08:00] VITALS: BP 129/85
[2021-05-21] MEDS: DOCUSATE SODIUM 100 MG (COLACE) CAP PO SCH (09:45)
[2021-05-21] MEDS ORDERED: diphenhydrAMINE 25 MG TAB (BENADRYL) PO ONE (09:55)
--- NOTE | 2021-05-21 09:55 | Postpartum Progress Note ---
Note Note Day # 2 Subjective: Patient is without complaints. Ambulating, voiding. Tolerating a regular diet without nausea or vomiting. Normal lochia. Pain is well controlled with oral pain medications. Breast feeding. Objective: Physical Exam: General - Alert and oriented, no apparent distress Abdomen - Soft, appropriately tender to palpation, non-distended, fundus firm at umbilicus Extremities - no edema, negative Betito's bilaterally Labia and perineum extremely edematous w/translucent appearance Assessment: Post- day # 2, status post PLTCS. Recovering well, hemodynamically stable Acute blood loss anemia Edema of labia and perineum Plan: Routine care. Encourage breast feeding. Encourage ambulation. Ferrous sulfate supplementation. Benadryl PO q 4-6hr for swelling Monitor output Plan for discharge later this afternoon, 05/21 Vitals - Labs Vital Signs - I&O Vital Signs Date Time Temp Pulse Resp B/P (MAP) Pulse Ox O2 Delivery O2 Flow Rate FiO2 05/21/21 03:31 36.2 60 18 110/71 (84) 98 Room Air 05/20/21 20:38 36.1 72 18 122/79 (93) 98 Room Air 05/20/21 15:36 36.6 75 18 115/73 (87) 98 Room Air SANCHO MCADAMS APRN May 21, 2021 09:55
[2021-05-21] MEDS: diphenhydrAMINE 25 MG TAB (BENADRYL) PO PRN ×2 (09:57→14:03)
[2021-05-21 13:25] VITALS: BP 111/62
== END 2021-05-21 18:45 | disposition home or self-care (01) | DRG 787 ==
LOC: WSo 08:08 → LDRP 08:09 → WSo 09:34 → LDRP 09:36
PROVIDERS: ADMIT Obstetrics & Gynecology; ATTEND Obstetrics & Gynecology
PROC: 10D00Z1 Extraction of Products of Conception, Low, Open Approach (ICD-10-PCS; principal; 2021-05-19 15:24)
DX: O65.4 Obstructed labor due to fetopelvic disproportion, unspecified (principal); D62 Acute posthemorrhagic anemia; Z3A.39 39 weeks gestation of pregnancy; Z37.0 Single live birth; O64.0XX0 Obstructed labor due to incomplete rotation of fetal head, not applicable or unspecified; O90.81 Anemia of the puerperium; O71.82 Other specified trauma to perineum and vulva
CPT/HCPCS: 36415; 85025; 86850; 86900; 86901; 94664; 99212

== ENCOUNTER 2023-09-14 07:51 | Inpatient (IN) | payer SELFPAY ==
[2023-09-14] VITALS (44 sets, daily range): BP systolic 100–152; BP diastolic 51–86
[~2023-09-14] VITALS: Ht 162.6 cm; Wt 72.9 kg
[~2023-09-14 07:51] MED LIST changes: +ACHD5005 PO; -DCS100C PO; +DOCU-239 PO; +SMT80CT PO
--- NOTE | 2023-09-14 09:58 | History & Physical-OB ---
OB - Chief Complaint & HPI Date/Time Date of Admission: Date of Admission: Time Seen by a Provider: 09:30 Chief Complaint/History OB-Reason for Admission/Chief: Onset of Labor Hx : 4 Hx Para: 2 Gestational Age in Weeks: 39 Gestational Age in Days: 1 Other reason for admission: Pt is a 28 yo with an obstetrical history significant for Csection, and 4th degree laceration here for onset of spontaneous labor. She desires a TOLAC. Pt reports feeling some cramping/contraction pain over her abdomen. Denies feeling low pelvic pressure. Denies having bleeindg disorders in her family or herself. Allergies and Home Medications Allergies Coded Allergies: No Known Drug Allergies (Unverified , 10/20/19) Patient Home Medication List Home Medication List Reviewed: Yes Docusate Sodium (Dok) 100 Mg Capsule, 100 MG PO BID PRN for CONSTIPATION-1ST LINE Prescribed by: FRAN BUSTOS on 05/20/21 0740 Ibuprofen (Ibu) 600 Mg Tablet, 600 MG PO Q6HR Prescribed by: FRAN BUSTOS on 05/20/21 0740 Simethicone (Mi-Acid) 80 Mg Tab.chew, 80 MG PO PCHS PRN for GAS Prescribed by: FRAN BUSTOS on 05/20/21 0740 Discontinued Medications Hydrocodone Bit/Acetaminophen (HYDROcodone/APAP 5 MG/325 MG TAB) 1 Tab Tab, 1-2 EA PO Q6HR PRN for PAIN-MODERATE (5-7) Prescribed by: FRAN BUSTOS on 05/20/21 0740 OB - History Delivery History Adverse Rxn to Tranfusion: No Patient Past Medical History previously healthy Social History/Family History 2nd Hand Smoke Exposure: No Immunizations Hepatitis A: No Hepatitis B: No OB - Admission Exam Physical Exam Lungs: Clear Abdomen: Gravid Extremities: Normal Cervical Dilatation: 5cm Effacement: 75% Station: -1 Membranes: Intact Heart Rate: 140's Accelerations: Accelerations Present Decelerations: No Decelerations Short Term Variability: Present Senior Care Variability: Average (6-25) Contractions on Admission: 6-10 Minutes Apart OB - Assessment/Plan/Diagnosis Assessment Assessment: observation Admission Dx Spontaneous labor Admission Status: Inpatient Order (span 2 midnights) Reason for Inpatient Admission: Spontaneous labor Plan Plan: Expectant Management Other Plan Pt reports to L & D in spontaneous labor Expectant management H/o 4th degree lac GBS NEG KASH SORIANO MD,RESIDENT Sep 14, 2023 09:58
[2023-09-14] MEDS ORDERED: fentaNYL 2 mcg/ml BUPIVA 0.125 100 ML ONE (10:22)
[2023-09-14] MEDS ORDERED: LACTATED RINGERS 1,000 ML 500 ML IV PRN (10:30)
[2023-09-14] MEDS ORDERED: D5 LR 1,000 ML IV SOLN 1,000 ML IV SCH (10:30)
[2023-09-14] MEDS ORDERED: MINERAL OIL 30 ML UDC TOP PRN (10:30)
[2023-09-14 10:33] LABS: BASOPHILS % (AUTO) 0 % (0-10); EOSINOPHILS % (AUTO) 0 % (0-10); HEMATOCRIT 37 % (35-52); HEMOGLOBIN 12.2 g/dL (11.5-16.0); LYMPHOCYTES % (AUTO) 21 % (12-44); MEAN CORPUSCULAR HEMOGLOBIN 30 pg (25-34); MEAN CORPUSCULAR HGB CONC 33 g/dL (32-36); MEAN CORPUSCULAR VOLUME 88 fL (80-99); MEAN PLATELET VOLUME 10.3 fL (9.0-12.2); MONOCYTES # (AUTO) 0.8 10^3/uL (0.0-1.0); MONOCYTES % (AUTO) 8 % (0-12); NEUTROPHILS # (AUTO) 6.6 10^3/uL (1.8-7.8); NEUTROPHILS % (AUTO) 69 % (42-75); PLATELET COUNT 218 10^3/uL (130-400); WHITE BLOOD COUNT 9.5 10^3/uL (4.3-11.0)
[2023-09-14] MEDS ORDERED: OXYTOCIN DRIP PRE-MIX 500 ML IV ONE ×2 (10:37→18:20)
[2023-09-14] MEDS ORDERED: NALOXONE 0.4 MG/ML 1 ML VIAL IV PRN ×3 (12:00→18:15)
[2023-09-14] MEDS ORDERED: LACTATED RINGERS 1,000 ML 1,000 ML IV SCH (12:00)
[2023-09-14] MEDS ORDERED: METOCLOPRAMIDE INJ 10 MG/2 ML IV PRN (12:00)
[2023-09-14] MEDS ORDERED: diphenhydrAMINE INJ 50 MG/ML VIAL IV PRN (12:00)
[2023-09-14] MEDS ORDERED: ONDANSETRON INJECTION 4 MG/2 ML (SDV) IV PRN (12:00)
[2023-09-14] MEDS ORDERED: fentaNYL 2 mcg/ml BUPIVA 0.125 100 ML EPI SCH (12:00)
[2023-09-14] MEDS ORDERED: CATHETER FLUSH 10 ML SYR IV SCH ×2 (14:00→22:00)
[2023-09-14] MEDS ORDERED: LIDOCAINE 2% w/EPI 1:200,000 20 ML VIAL ONE (16:50)
[2023-09-14] MEDS ORDERED: MEASLES, MUMPS, RUBELLA VACCINE (MMR) SQ ONE (18:15)
[2023-09-14] MEDS ORDERED: BENZOCAINE/MENTHOL (DERMOPLAST) 56 ML CAN TP PRN (18:15)
[2023-09-14] MEDS ORDERED: WITCH HAZEL(TUCKS) 40 EA JAR TOP PRN (18:15)
[2023-09-14] MEDS ORDERED: OXYTOCIN DRIP PRE-MIX 500 ML IV SCH (18:15)
[2023-09-14] MEDS ORDERED: DIBUCAINE 1% OINTMENT 28 GM TUBE TOP PRN (18:15)
[2023-09-14] MEDS ORDERED: Tetanus/Diphtheria/Pertussis (Acell) ADULT Vaccine 0.5 ML IM ONE (18:15)
--- NOTE | 2023-09-14 18:21 | OB Labor & Delivery Record ---
Vag Delivery Note Vag Delivery Note Date of Delivery: 09/14/23 Preoperative Diagnosis: Lissett Rod is a 28-year-old who presented at 39 weeks with complaint of contractions. And history of previous section and fourth degree perineal laceration Postoperative Diagnosis: Same plus liveborn male Attending Surgeon/Physician: Casimiro Gordillo DO Resident Physician: [] Oil And [employer] Superintendent: [] Anesthesia: Epidural Delivery Type: Spontaneous vaginal delivery Findings: [] Liveborn male born at 1747 on 09/14/2021 with Apgars of 9/9 and weight of 8 pounds 2 ounces Lacerations: Second-degree perineal laceration] Intact placenta with 3 vessel cord. No nuchal cord, body cord or shoulder dystocia Estimated Blood Loss: 300 ml Complications: None Condition: Stable Description of Procedure: The patient is a 28 year old female who presented at 39 weeks with complaint of contractions. She started at 3 cm and progressed to 6 cm. She had had a previous section for failure to descend. This baby was estimated weight of 6 pounds 13 ounces. She was admitted and informed consent was obtained. Her labor course was uneventful. She progressed to complete dilatation and began to push. She was then set up for delivery. The 's head was delivered atraumatically in the TYRELL position. The shoulders and remainder of the 's body were then delivered without difficulty. Upon delivery, the was vigorous and placed on maternal chest and the mouth and nares were bulb suctioned. After a 60 second delay cord was doubly clamped and cut and the infant remained on maternal chest. An intact placenta with 3-vessel cord delivered in Lucas position and there was found to be minimal bleeding.~ Vigorous fundal massage was performed and the fundus was found to be firm. IV oxytocin was given. Examination of the vagina and perineum revealed a second-degree perineal laceration repaired in the usual fashion with 3-0 vicryl rapide suture. Following the repair, sponge, instrument and needle counts were correct. Mom and baby were both in stable condition in the labor suite. Vitals - Labs Vital Signs - I&O Vital Signs Date Time Temp Pulse Resp B/P (MAP) Pulse Ox O2 Delivery O2 Flow Rate FiO2 09/14/23 16:15 61 20 125/78 (94) 98 Room Air 09/14/23 16:00 37.0 61 16 119/73 (88) 98 Room Air 09/14/23 15:45 61 18 117/68 (84) 97 Room Air 09/14/23 15:30 57 18 112/68 (83) 97 Room Air 09/14/23 15:15 57 18 100/57 (71) 96 Room Air 09/14/23 15:00 36.9 60 18 103/57 (72) 97 Room Air 09/14/23 14:45 68 18 107/63 (78) 97 Room Air 09/14/23 14:30 59 18 100/62 (75) 97 Room Air 09/14/23 14:15 63 18 116/70 (85) 98 Room Air 09/14/23 14:00 64 18 107/64 (78) 97 Room Air 09/14/23 13:45 57 16 115/72 (86) 97 Room Air 09/14/23 13:30 62 16 122/74 (90) 97 Room Air 09/14/23 13:15 56 18 112/63 (79) 98 Room Air 09/14/23 13:00 37.0 56 16 106/59 (75) 98 Room Air 09/14/23 12:45 58 18 102/51 (68) 98 Room Air 09/14/23 12:20 61 18 114/68 (83) 98 Room Air 09/14/23 12:15 71 20 152/66 (94) 98 Room Air 09/14/23 12:10 58 20 120/69 (86) 96 Room Air 09/14/23 12:05 56 18 127/67 (87) 96 Room Air 09/14/23 12:00 37.0 55 18 124/73 (90) 98 Room Air 09/14/23 11:55 65 18 117/65 (82) 96 Room Air 09/14/23 11:49 56 18 129/74 (92) 97 Room Air 09/14/23 11:46 61 18 122/70 (87) 98 Room Air 09/14/23 11:43 57 18 122/70 (87) 98 Room Air 09/14/23 11:40 55 18 127/77 (94) 99 Room Air 09/14/23 11:37 58 20 132/85 (101) 99 Room Air 09/14/23 11:34 66 20 128/86 (100) 99 Room Air 09/14/23 11:31 59 18 132/80 (97) 97 Room Air 09/14/23 11:28 61 18 138/85 (102) 98 Room Air 09/14/23 11:25 57 18 124/72 (89) 98 Room Air 09/14/23 08:10 37.2 68 18 97 Room Air Labs Laboratory Tests 09/14/23 09:19: White Blood Count 9.5, Red Blood Count 4.13, Hemoglobin 12.2, Hematocrit 37, Mean Corpuscular Volume 88, Mean Corpuscular Hemoglobin 30, Mean Corpuscular Hemoglobin Concent 33, Red Cell Distribution Width 12.9, Platelet Count 218, Mean Platelet Volume 10.3, Immature Granulocyte % (Auto) 1, Neutrophils (%) (Auto) 69, Lymphocytes (%) (Auto) 21, Monocytes (%) (Auto) 8, Eosinophils (%) (Auto) 0, Basophils (%) (Auto) 0, Neutrophils # (Auto) 6.6, Lymphocytes # (Auto) 2.0, Monocytes # (Auto) 0.8, Eosinophils # (Auto) 0.0, Basophils # (Auto) 0.0, Immature Granulocyte # (Auto) 0.1, Syphilis Total Antibody Negative CASIMIRO GORDILLO DO Sep 14, 2023 18:21
--- NOTE | 2023-09-14 18:23 | Discharge Summary ---
Discharge Summary Hospital Course Problems Reviewed?: Yes Hospital Course Date of Admission: Sep 14, 2023 at 10:22 Admission Diagnosis : Family Physician/Provider: Kimmy Mascorro MD Date of Discharge: 09/14/23 Discharge Diagnosis: - Hospital Course: Pt was admitted for labor. She progressed to complete and delivered vaginally w/o difficulty. Pt did well PPD #1 and was discharged to home with PP instructions. Labs and Pending Lab Test: Laboratory Tests 09/14/23 09:19: White Blood Count 9.5, Red Blood Count 4.13, Hemoglobin 12.2, Hematocrit 37, Mean Corpuscular Volume 88, Mean Corpuscular Hemoglobin 30, Mean Corpuscular Hemoglobin Concent 33, Red Cell Distribution Width 12.9, Platelet Count 218, Me an Platelet Volume 10.3, Immature Granulocyte % (Auto) 1, Neutrophils (%) (Auto) 69, Lymphocytes (%) (Auto) 21, Monocytes (%) (Auto) 8, Eosinophils (%) (Auto) 0, Basophils (%) (Auto) 0, Neutrophils # (Auto) 6.6, Lymphocytes # (Auto) 2.0, Monocytes # (Auto) 0.8, Eosinophils # (Auto) 0.0, Basophils # (Auto) 0.0, Immature Granulocyte # (Auto) 0.1, Syphilis Total Antibody Negative Home Meds Active Dok (Docusate Sodium) 100 Mg Capsule 100 Mg PO BID PRN Mi-Acid (Simethicone) 80 Mg Tab.chew 80 Mg PO PCHS PRN HYDROcodone/APAP 5 MG/325 MG TAB (Acetaminophen/Hydrocodone Bitart) 1 Tab Tab 1-2 Ea PO Q6HR PRN Ibu (Ibuprofen) 600 Mg Tablet 600 Mg PO Q6HR Activity: Activity as Tolerated Driving Instructions: No Driving for 1 Week NO SMOKING: NO SMOKING Nothing Inside Vagina: No Douching, No [place], No Tampons Discharge Diet: Regular Diet Symptoms to Report to : Fever Over 101 Degrees F, Vaginal Bleeding Increase, Vaginal Discharge Foul For Any Problems or Questions: Go to Emergency Room Discharge Physical Examination Allergies: Coded Allergies: No Known Drug Allergies (Unverified , 10/20/19) Vitals & I&Os Vital Signs Date Time Temp Pulse Resp B/P (MAP) Pulse Ox O2 Delivery O2 Flow Rate FiO2 09/14/23 16:15 61 20 125/78 (94) 98 Room Air 09/14/23 16:00 37.0 Discharge Summary Date of Admission Sep 14, 2023 at 10:22 Date of Discharge Supervisory-Addendum Brief Verification & Attestation Participated in pt care: history, MDM, physical Personally performed: exam, history, MDM, supervision of care Care discussed with: Medical Student Procedures: n/a Results interpretation: Verified all documentation I personally saw and examined this patient CASIMIRO GORDILLO DO Sep 14, 2023 18:23
[2023-09-14] MEDS: ACETAMINOPHEN 500 MG TABLET PO SCH ×2 (19:08→21:26)
[2023-09-14] MEDS: IBUPROFEN 600 MG TABLET PO SCH ×2 (19:08→21:26)
[2023-09-14] MEDS: DOCUSATE SODIUM 100 MG CAPSULE PO SCH (21:00)
[2023-09-15 00:50] VITALS: BP 93/50
[2023-09-15 05:14] VITALS: BP 87/57
[2023-09-15] MEDS: IBUPROFEN 600 MG TABLET PO SCH ×2 (05:14→14:50)
[2023-09-15] MEDS: ACETAMINOPHEN 500 MG TABLET PO SCH ×2 (05:14→14:51)
[2023-09-15 05:48] LABS: BASOPHILS % (AUTO) 0 % (0-10); EOSINOPHILS # (AUTO) 0.1 10^3/uL (0.0-0.3); EOSINOPHILS % (AUTO) 0 % (0-10); HEMATOCRIT 35 % (35-52); HEMOGLOBIN 11.9 g/dL (11.5-16.0); LYMPHOCYTES # (AUTO) 2.5 10^3/uL (1.0-4.0); LYMPHOCYTES % (AUTO) 21 % (12-44); MEAN CORPUSCULAR HEMOGLOBIN 30 pg (25-34); MEAN CORPUSCULAR HGB CONC 34 g/dL (32-36); MEAN CORPUSCULAR VOLUME 88 fL (80-99); MEAN PLATELET VOLUME 10.3 fL (9.0-12.2); MONOCYTES # (AUTO) 0.8 10^3/uL (0.0-1.0); MONOCYTES % (AUTO) 7 % (0-12); NEUTROPHILS # (AUTO) 8.7 10^3/uL (1.8-7.8); NEUTROPHILS % (AUTO) 71 % (42-75); PLATELET COUNT 176 10^3/uL (130-400); WHITE BLOOD COUNT 12.2 10^3/uL (4.3-11.0)
[2023-09-15] MEDS ORDERED: PRENATAL VITAMIN TABLET PO SCH (07:00)
--- NOTE | 2023-09-15 08:35 | Postpartum Progress Note ---
Note Note Day #1 Subjective: Patient is without complaints. Ambulating, voiding. Tolerating a regular diet without nausea or vomiting. Normal lochia. Pain is well controlled with oral pain medications. . [] Objective: VSS AF Physical Exam: General - Alert and oriented, no apparent distress Abdomen - Soft, appropriately tender to palpation, non-distended, fundus firm at umbilicus Extremities - no edema, negative Betito's bilaterally Assessment: [] post- day #1, status post vaginal delivery. Recovering well, hemodynamically stable Plan: Routine care. Encourage breast feeding. Encourage ambulation. Ferrous sulfate supplementation. Plan for discharge [] Vitals - Labs Vital Signs - I&O Vital Signs Date Time Temp Pulse Resp B/P (MAP) Pulse Ox O2 Delivery O2 Flow Rate FiO2 09/15/23 05:14 36.6 56 18 87/57 (67) 98 Room Air 09/15/23 00:50 36.5 53 18 93/50 (64) 98 Room Air 09/14/23 22:25 37.0 55 18 117/74 (88) 98 Room Air 09/14/23 21:25 63 18 125/78 (94) Room Air 09/14/23 20:55 56 18 129/81 (97) Room Air 09/14/23 20:23 36.8 56 18 121/73 (89) Room Air 09/14/23 19:53 36.6 68 16 123/77 (92) Room Air 09/14/23 19:38 50 18 113/71 (85) Room Air 09/14/23 19:23 36.8 49 16 111/71 (84) Room Air 09/14/23 19:08 48 18 120/80 (93) Room Air 09/14/23 18:53 69 18 128/86 (100) Room Air 09/14/23 18:38 59 18 121/74 (90) Room Air 09/14/23 18:23 37.0 60 18 127/76 (93) Room Air 09/14/23 18:08 65 18 112/63 (79) Room Air 09/14/23 17:53 75 18 110/78 (89) Room Air 09/14/23 16:15 61 20 125/78 (94) 98 Room Air 09/14/23 16:00 37.0 61 16 119/73 (88) 98 Room Air 09/14/23 15:45 61 18 117/68 (84) 97 Room Air 09/14/23 15:30 57 18 112/68 (83) 97 Room Air 09/14/23 15:15 57 18 100/57 (71) 96 Room Air 09/14/23 15:00 36.9 60 18 103/57 (72) 97 Room Air 09/14/23 14:45 68 18 107/63 (78) 97 Room Air 09/14/23 14:30 59 18 100/62 (75) 97 Room Air 09/14/23 14:15 63 18 116/70 (85) 98 Room Air 09/14/23 14:00 64 18 107/64 (78) 97 Room Air 09/14/23 13:45 57 16 115/72 (86) 97 Room Air 09/14/23 13:30 62 16 122/74 (90) 97 Room Air 09/14/23 13:15 56 18 112/63 (79) 98 Room Air 09/14/23 13:00 37.0 56 16 106/59 (75) 98 Room Air 09/14/23 12:45 58 18 102/51 (68) 98 Room Air 09/14/23 12:20 61 18 114/68 (83) 98 Room Air 09/14/23 12:15 71 20 152/66 (94) 98 Room Air 09/14/23 12:10 58 20 120/69 (86) 96 Room Air 09/14/23 12:05 56 18 127/67 (87) 96 Room Air 09/14/23 12:00 37.0 55 18 124/73 (90) 98 Room Air 09/14/23 11:55 65 18 117/65 (82) 96 Room Air 09/14/23 11:49 56 18 129/74 (92) 97 Room Air 09/14/23 11:46 61 18 122/70 (87) 98 Room Air 09/14/23 11:43 57 18 122/70 (87) 98 Room Air 09/14/23 11:40 55 18 127/77 (94) 99 Room Air 09/14/23 11:37 58 20 132/85 (101) 99 Room Air 09/14/23 11:34 66 20 128/86 (100) 99 Room Air 09/14/23 11:31 59 18 132/80 (97) 97 Room Air 09/14/23 11:28 61 18 138/85 (102) 98 Room Air 09/14/23 11:25 57 18 124/72 (89) 98 Room Air I & O 09/15/23 07:00 Intake Total 2500 ml Balance 2500 ml Labs Laboratory Tests 09/14/23 09:19: White Blood Count 9.5, Red Blood Count 4.13, Hemoglobin 12.2, Hematocrit 37, Mean Corpuscular Volume 88, Mean Corpuscular Hemoglobin 30, Mean Corpuscular Hemoglobin Concent 33, Red Cell Distribution Width 12.9, Platelet Count 218, Mean Platelet Volume 10.3, Immature Granulocyte % (Auto) 1, Neutrophils (%) (Auto) 69, Lymphocytes (%) (Auto) 21, Monocytes (%) (Auto) 8, Eosinophils (%) (Auto) 0, Basophils (%) (Auto) 0, Neutrophils # (Auto) 6.6, Lymphocytes # (Auto) 2.0, Monocytes # (Auto) 0.8, Eosinophils # (Auto) 0.0, Basophils # (Auto) 0.0, Immature Granulocyte # (Auto) 0.1, Syphilis Total Antibody Negative 09/15/23 05:33: White Blood Count 12.2H, Red Blood Count 4.01, Hemoglobin 11.9, Hematocrit 35, Mean Corpuscular Volume 88, Mean Corpuscular Hemoglobin 30, Mean Corpuscular Hemoglobin Concent 34, Red Cell Distribution Width 12.9, Platelet Count 176, Mean Platelet Volume 10.3, Immature Granulocyte % (Auto) 1, Neutrophils (%) (Auto) 71, Lymphocytes (%) (Auto) 21, Monocytes (%) (Auto) 7, Eosinophils (%) (Auto) 0, Basophils (%) (Auto) 0, Neutrophils # (Auto) 8.7H, Lymphocytes # (Auto) 2.5, Monocytes # (Auto) 0.8, Eosinophils # (Auto) 0.1, Basophils # (Auto) 0.0, Immature Granulocyte # (Auto) 0.1 CASIMIRO GORDILLO DO Sep 15, 2023 08:35
[2023-09-15] MEDS ORDERED: FERROUS SULFATE 325 MG (IRON) TABLET PO SCH (09:00)
[2023-09-15 09:53] VITALS: BP 111/68
[2023-09-15] MEDS: DOCUSATE SODIUM 100 MG CAPSULE PO SCH ×2 (09:53→19:52)
[2023-09-15 14:49] VITALS: BP 115/78
--- NOTE | 2023-09-15 15:51 | Anesthesia-Regional Post-Op ---
Regional Patient Condition Mental Status: Alert, Oriented x3 Circulation: Same as Pre-Op Headache: Absent Sensation: Full Recovery Motor Block: Absent Post Op Complications Complications None Follow Up Care/Instructions Patient Instructions None needed. Anesthesia/Patient Condition Patient is doing well, no complaints, stable vital signs, no apparent adverse anesthesia problems. No complications reported per nursing. CALVIN JAMES DO Sep 15, 2023 15:51
[2023-09-15 19:26] VITALS: BP 104/65
== END 2023-09-15 20:00 | disposition home or self-care (01) | DRG 807 ==
LOC: LDRP 07:51 → WSo 07:51 → LDRP 10:22
PROVIDERS: ADMIT Obstetrics & Gynecology; ATTEND Obstetrics & Gynecology
PROC: 10E0XZZ Delivery of Products of Conception, External Approach (ICD-10-PCS; principal; 2023-09-14)
PROC: 0KQM0ZZ Repair Perineum Muscle, Open Approach (ICD-10-PCS; 2023-09-14)
DX: O70.1 Second degree perineal laceration during delivery (principal); Z37.0 Single live birth; O34.211 Maternal care for low transverse scar from previous cesarean delivery; Z3A.39 39 weeks gestation of pregnancy
CPT/HCPCS: 36415; 85025; 86780; 86850; 86900; 86901; 99213